=== PATIENT | male | born 1980 | race Caucasian/White ===

== ENCOUNTER 2019-11-22 14:59 | Emergency (ER) | payer BC, OTHER ==
[2019-11-22] MEDS ORDERED: HYDROcodone/Acetaminophen 10/325 mg Tablet ONE (15:07)
--- NOTE | 2019-11-22 16:46 | RAD ---
RIGHT WRIST THREE VIEWS: Date: 11-22-2019 FINDINGS: Three views show a transverse fracture of the distal radius. There is little or no displacement of th e fracture fragment. There is also a subtle fracture through the base of the ulnar styloid process. T he carpal bones appear intact. IMPRESSION: Fracture of the distal radius. Subtle fracture of the ulnar styloid. POS: HOME
== END 2019-11-22 17:19 | disposition home or self-care (01) ==
LOC: BURERS 14:59
DX: S52.501A Unspecified fracture of the lower end of right radius, initial encounter for closed fracture (principal); S52.614A Nondisplaced fracture of right ulna styloid process, initial encounter for closed fracture; I10 Essential (primary) hypertension; F17.210 Nicotine dependence, cigarettes, uncomplicated; Z79.899 Other long term (current) drug therapy; W18.30XA Fall on same level, unspecified, initial encounter
CPT/HCPCS: 29125